=== PATIENT | female | born 1930 | race Caucasian/White ===

== ENCOUNTER 2017-02-13 07:47 | Emergency (ER) | payer MEDICARE, OTHER ==
[~2017-02-13] VITALS: Ht 160 cm; Wt 55.0 kg
[2017-02-13] MEDS ORDERED: LIDOCAINE 1%, 20ML INFIL ONE (08:30)
[2017-02-13] MEDS ORDERED: L.E.T SOLUTION TP ONE ×2 (08:30→08:32)
[2017-02-13] MEDS ORDERED: BACITRACIN ZINC OINT 500U/GM, 0.9 GM ONE (09:56)
[2017-02-13 10:25] VITALS: BP 139/64
== END 2017-02-13 10:27 | disposition home or self-care (01) ==
LOC: ED 10:06
DX: S01.112A Laceration without foreign body of left eyelid and periocular area, initial encounter (principal); W18.30XA Fall on same level, unspecified, initial encounter; Y93.89 Activity, other specified; Y92.009 Unspecified place in unspecified non-institutional (private) residence as the place of occurrence of the external cause; Y99.9 Unspecified external cause status
CPT/HCPCS: 12011; 99283

== ENCOUNTER 2017-04-03 12:22 | Emergency (ER) | payer MEDICARE, OTHER ==
[~2017-04-03] VITALS: Ht 154.9 cm; Wt 53.1 kg
[2017-04-03 12:37] VITALS: BP 140/74
[2017-04-03] MEDS ORDERED: morphine SULFATE ORAL.CONC 20 MG/ML PO ONE (15:30)
[2017-04-03] MEDS ORDERED: LORazepam 1MG TABLET PO ONE (15:30)
[2017-04-03] MEDS ORDERED: LORazepam INTENSOL 2 MG/ML PO ONE (16:00)
== END 2017-04-03 16:57 | disposition home or self-care (01) ==
LOC: ED 16:18
DX: S72.034A Nondisplaced midcervical fracture of right femur, initial encounter for closed fracture (principal); I10 Essential (primary) hypertension; W19.XXXA Unspecified fall, initial encounter; Y93.89 Activity, other specified; Y92.89 Other specified places as the place of occurrence of the external cause; Y99.9 Unspecified external cause status
CPT/HCPCS: 99284